=== PATIENT | male | born 1995 | race Caucasian/White ===

== ENCOUNTER 2021-07-19 21:49 | Emergency (ER) | payer SELFPAY ==
[~2021-07-19] VITALS: Ht 182.9 cm; Wt 65.0 kg
[2021-07-19 21:52] VITALS: BP 152/75
[2021-07-19] MEDS ORDERED: METHYLPREDNISOLONE SOD SUCC 125 MG/2 ML VIAL IV STA (21:59)
[2021-07-19] MEDS ORDERED: IPRATROPIUM BROMIDE (0.02%) 0.5MG/2.5ML NEB HHN STA (21:59)
[2021-07-19] MEDS ORDERED: ALBUTEROL (0.083%) 2.5MG/3ML NEB HHN STA (21:59)
[2021-07-19] MEDS ORDERED: MAGNESIUM 2 G PREMIX 50 ML IV ONE (22:00)
[2021-07-19 22:28] LABS: BASOPHILS % 0.8 % (0.0-2.0); EOSINOPHILS % 2.7 % (0.0-5.0); HEMATOCRIT. 45.8 % (42.0-52.0); HEMOGLOBIN. 15.2 g/dL (14.0-18.0); LYMPHOCYTES % 29.9 % (20.0-50.0); MEAN CORPUSCULAR HEMOGLOBIN 29.9 pg (28.0-32.0); MEAN CORPUSCULAR VOLUME 90.1 fL (80.0-94.0); MEAN PLATELET VOLUME 7.5 fl (7.4-10.4); MONOCYTES % 10.6 % (2.0-8.0); PLATELET 272 x1000/uL (130-400); RED BLOOD CELL COUNT 5.08 mill/uL (4.7-6.1); RED CELL DISTRIBUTION WIDTH 14.7 % (11.6-14.6)
[2021-07-19 22:37] LABS: CHLORIDE 103 mEq/L (98-107)
[2021-07-19] MEDS ORDERED: ALBU6.7H9 INH (23:06)
[2021-07-19] MEDS ORDERED: PRED10TA23 MT (23:06)
== END 2021-07-19 23:38 | disposition home or self-care (01) ==
LOC: ER 21:49
DX: J45.909 Unspecified asthma, uncomplicated (principal)
CPT/HCPCS: 36415; 71045; 80053; 85025; 93005; 94640; 96365; 96375; 99285; J2930; J3475; Z7610